=== PATIENT | male | born 1975 | race African-American/Black ===

== ENCOUNTER 2017-11-04 10:40 | Emergency (ER) | payer OTHER ==
[~2017-11-04] VITALS: Ht 188 cm; Wt 81.6 kg
--- NOTE | 2017-11-04 11:49 | ED HAND/WRIST INJURY COMPLAINT ---
History of Present Illness General Chief Complaint: Hand or Wrist Injury Stated Complaint: ?INFECTION IN LEFT HAND Source: patient, family, old records Exam Limitations: no limitations Vital Signs & Intake/Output Vital Signs & Intake/Output Vital Signs Date Time Temp Pulse Resp B/P B/P Pulse O2 O2 Flow FiO2 Mean Ox Delivery Rate 11/04 1238 99 Room Air 11/04 1044 97.2 96 18 121/67 99 Room Air Allergies Coded Allergies: No Known Allergies (11/04/17) Reconcile Medications Amoxicillin 500 MG TABLET 1 TAB PO BID cellulitis Oxycodone HCl/Acetaminophen (Percocet 5-325 MG Tablet) 5 MG-325 MG TABLET 1 TAB PO BID PRN pain Sulfamethoxazole/Trimethoprim (Bactrim Ds Tablet) 800 MG-160 MG TABLET 1 TAB PO BID abscess Triage Note: PT TO ED FOR L HAND INFECTION, OPEN AREA NOTED OVER THUMB, STATING "I WAS FOOLING AROUND WITH MY WORK KNIFE." HAND GROSSLY SWOLLEN. DENIES FEVER, N/V/D, WEAKNESS. 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 Triage Nurses Notes Reviewed? yes Occurred: last week Duration: day(s): (3), constant Timing: recent history Injury Environment: home Severity: moderate Severity Numbers: 5 Pain/Injury Location: Left: 1st finger. No Modifying Factors: none Associated Symptoms: swelling, redness HPI: 42 YEAR OLD Male no medical history presents to the ER for evaluation c/o swelling redness and pain and idscharge from an incision to his left 1st finger last week- pt had scab that he states he cut into with his steam box hand. discharge began 2 days ago, no fever, chills, redness up arm. no fever, chilsl, nausea or vomiting. he has not taken anyting for his sx. (Marquis Reyes) Past History Travel History Traveled to [place] past 21 day No Medical History Any Pertinent Medical History? none Neurological: NONE EENT: NONE Cardiovascular: NONE Respiratory: NONE Gastrointestinal: NONE Hepatic: NONE Renal: NONE Musculoskeletal: NONE Psychiatric: NONE Endocrine: NONE Blood Disorders: NONE Cancer(s): NONE Surgical History Surgical History: none Psychosocial History What is your primary language Niuean Tobacco Use: Current Daily Use Daily Tobacco Use Amount/Type: => 5 Cigarettes daily ETOH Use: occasional use Illicit Drug Use: marijuana Family History Hx Contributory? No (Maruqis Reyes) Review of Systems Review of Systems Constitutional: Reports: see HPI. Comments Review of systems: See HPI, All other systems negative. Constitutional, no chills no fever, HEENT: no sore throat no congestion Cardiovascular: No chest pain Skin: no rashes, no change in skin Respiratory: No dyspnea no cough no sputum GI: No nausea no vomiting, Muscle skeletal: No joint pain, no back pain, no neck pain, Neurologic: , no headache Heme/endocrine: No bruising Immunology: No lymphadenopathy (Marquis Reyes) Physical Exam Physical Exam General Appearance: well developed/nourished, no apparent distress, alert Hand Left: normal range of motion, tender, 1st finger, no visualized fb, no visualized tendon injury, pt has from of finger Hand Right: normal inspection, normal range of motion Comments: Well-developed well-nourished patient in no apparent distress. HEENT: Atraumatic, extraocular motion intact Neck: Supple, FROM Back: FROM Cardiovascular: Regular rate and rhythms no murmurs rubs or gallops, Respiratory: No respiratory distress. Patient speaking in full complete sentences. Breath sounds clear to auscultation bilaterally: NO W/R/R Shoulder: Atraumatic/Stable. FROM . Elbow: Atraumatic/stable. FROM. No laxity Upper arm/Forearm: No streaking up the forearm no erythema no swelling Atraumatic. Nontender. 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 Brisk cap refill Lower Extremities: full range of motion Neuro: awake, alert, and oriented to person, place and time. There were no obvious focal neurologic abnormalities. Skin: Warm & dry;No appreciable rash on exposed skin Psych: Mood affect normal, normal memory normal judgment. (Marquis Reyes) Progress Differential Diagnosis: cellulitis, contusion, compartment syndrome, fracture, septic arthritis, sprain, tenosynovitis, OSTEO Plan of Care: Orders Procedure Date/time Status EXTREMETIES CULTURE 02/24 1155 Active Microbiology 11/04 1154 EXTREMITIE: Culture & Sensitivity - RECD 11/04 1154 EXTREMITIE: Gram Stain - RECD Culture swab was sent of the purulent discharge. Discussed with patient his x- ray results, return precautions were discussed at length there is no streaking up the skin no fever chills he will return in 48 hours for wound check. He feels comfortable with plan per scheduled for PERCOCET, amoxicillin and Bactrim will be provided. The possibility of a foreign body or tendon injury not seen on examination still exists was discussedwith the pt. sterile dressing applied, it was discussed with the patient that I would like him to come back in 2-3 days for wound check. Return precautions anytime sooner were discussed with him apparently he feels comfortable with this plan Diagnostic Imaging: Viewed by Me: Radiology Read. Discussed w/RAD: Radiology Read. Radiology Impression: PATIENT: GRAYSON STACK JR PRESENT AGE: 42 PATIENT ACCOUNT NO: [id number] : 74 LOCATION: [facility] [place] ORDERING PHYSICIAN: Marquis HURD SERVICE DATE: 11/04/17-1154 EXAM TYPE: RAD - XRY-FINGERS, LEFT EXAMINATION: XR FINGER, LEFT CLINICAL INFORMATION: First finger infection. COMPARISON: None TECHNIQUE: 5 images of of the left finger. FINDINGS: The bones and soft tissues are normal. No fracture. Alignment is anatomic. Joint spaces are maintained. Imaging of the first digit reveals no fracture or dislocation. IMPRESSION: Unremarkable left hand and first digit. DICTATED BY: Manohar Butcher MD DATE/TIME DICTATED:11/04/171308 FERMENTATION OPERATOR :FRANNIE DATE/TIME TRANSCRIBED:11/04/171308 CONFIDENTIAL, DO NOT COPY WITHOUT APPROPRIATE AUTHORIZATION. <Electronically signed in Other Vendor System> SIGNED BY: Manohar Butcher MD 11/04/171314 (Marquis Reyes) Departure Departure Time of Disposition: 1314 Disposition: HOME OR SELF CARE Condition: Stable Clinical Impression Primary Impression: Cellulitis Referrals: Patient Has No Primary Care Dr (PCP/Family) Additional Instructions: amoxicillin and bactrim as directed. tramadol for breakthrough pain-use caution as this may make you drowsy. these were sent to the [facility]. The possibility of a foreign body or tendon injury not seen on examination still exists. please return to the ER in 2-3 days for wound check. return at anytime sooner if you develop fever, chills, worsening swelling, redness up your arm or any other concerns Departure Forms: Customer Survey General Discharge Information Prescriptions: Current Visit Scripts Sulfamethoxazole/Trimethoprim (Bactrim Ds Tablet) 1 TAB PO BID #14 TAB Amoxicillin 1 TAB PO BID #14 TAB Oxycodone HCl/Acetaminophen (Percocet 5-325 MG Tablet) 1 TAB PO BID PRN pain #10 TAB (Marquis Reyes) PA/FRENCH DRAWER Co-Sign Statement Statement: ED Attending supervision documentation- [] I saw and evaluated the patient. I have also reviewed all the pertinent lab results and diagnostic results. I agree with the findings and the plan of care as documented in the PA's/FRENCH DRAWER's documentation. [X] I have reviewed the ED Record and agree with the PA's/FRENCH DRAWER's documentation. [] Additions or exceptions (if any) to the PAs/FRENCH DRAWER's note and plan are summarized below: [] (Brent Jorge DO)
--- NOTE | 2017-11-04 13:15 | RADIOLOGY REPORT ---
EXAMINATION: XR FINGER, LEFT CLINICAL INFORMATION: First finger infection. COMPARISON: None TECHNIQUE: 5 images of of the left finger. FINDINGS: The bones and soft tissues are normal. No fracture. Alignment is anatomic. Joint spaces are maintained. Imaging of the first digit reveals no fracture or dislocation. IMPRESSION: Unremarkable left hand and first digit.
[2017-11-04] MEDS ORDERED: AMOXICILLIN500 M3 PO (13:17)
[2017-11-04] MEDS ORDERED: BACTRIM DS TAB1 EACH PO (13:17)
[2017-11-04] MEDS ORDERED: TRAMADOL HCL50 M1 PO ×2 (13:17→13:19)
[2017-11-04] MEDS ORDERED: PERCOCET 5-3251 EACH PO (13:32)
== END 2017-11-04 13:41 ==
LOC: ERH 10:40
DX: S61.012A Laceration without foreign body of left thumb without damage to nail, initial encounter (principal); L03.012 Cellulitis of left finger; W26.0XXA Contact with knife, initial encounter; Y93.9 Activity, unspecified; Y92.9 Unspecified place or not applicable
CPT/HCPCS: 73140-LT; 87070; 90471; 90714